=== PATIENT | female | born 2005 | race Caucasian/White ===

== ENCOUNTER 2025-01-29 10:04 | Emergency (ER) | payer OTHER, SELFPAY ==
--- NOTE | ~2025-01-29 | CT_ITS ---
EXAMINATION: CT ABDOMEN AND PELVIS WITH CONTRAST CLINICAL INFORMATION: Lower abdominal pain. Nausea. Vomiting. COMPARISON: None available. TECHNIQUE: Multidetector volumetric images were obtained from the superior aspect of the liver through the pubic symphysis following administration 85 mL of Omnipaque 350 intravenous contrast. Sagittal and coronal reformatted images were obtained on the technologist's workstation. Oral contrast: No This CT examination was performed using dose optimization techniques as appropriate, variously including the following: *Automated exposure control *Adjustment of mA and/or kV according to patient size (this includes techniques or standardized protocols for targeted exams where dose is matched to indication/reason for exam; i.e. extremities or head) *Use of iterative reconstruction technique DLP: 378 mGy centimeter. FINDINGS: LUNG BASES: No acute airspace disease or gross pulmonary nodules. LIVER, GALLBLADDER, AND BILIARY TREE: Liver measures 16 cm. No focal mass. Portal veins, hepatic veins and intrahepatic portion of the IVC are patent. No intrahepatic biliary ductal dilatation. No pericholecystic fluid collection or gallbladder wall thickening. Common bile duct measures 2 mm. PANCREAS: No focal lesion. No peripancreatic fluid collection. No main pancreatic ductal dilatation. SPLEEN: 8 cm. No focal lesion. ADRENAL GLANDS: No nodular lesions. KIDNEYS AND URETERS: No hydronephrosis. No gross nephrolithiasis. No enhancing renal mass. Normal enhancement pattern of the renal parenchyma. BLADDER: Fluid-filled. GASTROINTESTINAL TRACT: Appendix is normal. There is gas and fluid-filled mildly prominent small bowel loops. There is a focal intussusception active the mid small bowel loops segment/digitally ileal junction. There is bowel wall thickening throughout the jejunal loops. No intestinal obstruction pattern. No pneumatosis intestinalis. No pneumoperitoneum. Small amount of free fluid in the cul-de-sac. ABDOMINAL WALL: Small tiny fat-containing umbilical hernia. Metallic piercing in the inferior umbilicus.. LYMPH NODES: No lymphadenopathy, mesenteric or retroperitoneal. VASCULAR: No aneurysm or dissection, thoracic aorta. PELVIC VISCERA: 2 cm peripheral enhancing cyst, right adnexa with a trace of free fluid in the cul-de-sac. OSSEOUS STRUCTURES: No acute fracture or listhesis. No lytic or blastic lesions. CT/CT abdomen pelvis w IV con IMPRESSION: Focal segment of intussusception at the jejunal ileal loops with partial incomplete small bowel obstruction. The possibility of a Meckel's diverticulum should be considered in the correct clinical settings. Probable recently rupture right ovarian cyst. Fleischner guidelines were followed. Electronically signed by: Reji Larkin MD 01/29/2025 12:23 PM EDT RP
--- NOTE | ~2025-01-29 | FL_ITS ---
EXAMINATION: FL SMALL BOWEL SERIES CLINICAL INFORMATION: intussusception seen on CT COMPARISON: None available. TECHNIQUE: Following a shaft repairer image of the abdomen, contrast was administered orally, and interval abdominal radiographs were performed to assess for contrast progression through the small bowel. Following contrast transit through the small bowel and into the colon, the patient was placed on the fluoroscopy table, and multiple spot images were obtained. FINDINGS: Advanced Registered Nurse image of the abdomen demonstrates mildly distended small bowel gas pattern. There is normal transit time of contrast material through the small bowel, with contrast present in the colon by 1 hour 45 minutes. Following contrast administration the small bowel loops are of normal caliber throughout the abdomen and pelvis. The jejunal and ileal fold patterns are normal, without evidence of abnormal thickening. No fixed regions of luminal narrowing are seen to suggest stricturing. The terminal ileum demonstrates a normal appearance. The ascending and transverse colon is opacified and appears normal. No spot images obtained. FL/FL small bowel follow through IMPRESSION: No evidence of small bowel obstruction. There is just normal small bowel transit time of 95 minutes. There is no small bowel wall thickening seen. Electronically signed by: Juan Fontenot MD 01/30/2025 01:34 PM EDT
[2025-01-29 10:07] VITALS: BP 103/59; PULSE 101; RESP 18; TEMP 37.1; O2SAT 100; BMI 25.7
[2025-01-29 10:27] LABS: MANUAL DIFF FLAG NO
--- NOTE | 2025-01-29 10:29 | ED_ITS ---
HPI - Abdominal Pain General Chief Complaint: Abdominal Pain Stated Complaint: Vomiting Time Seen by Provider: 01/29/25 10:29 Source: patient, RN notes reviewed and old records reviewed Mode of arrival: ambulatory History of Present Illness ED Provider: Carmen Rutherford PA-C [facility] narrative: 19-year-old female with no significant past medical history presenting to the ED complaining of diffuse abdominal pain, nausea, vomiting x this morning. States 2 weeks ago had episode of nausea, vomiting, and lightheadedness with syncopal episodes at home, admits she called EMS and they noted her BP was low however she was never evaluated. Denies lightheadedness /dizziness at present or more recent syncopal episodes. Denies fever, chills, cough /recent illness, diarrhea/constipation, dysuria / hematuria, vaginal bleeding or discharge. LMP last month. Related Data Allergies Allergy/AdvReac Type Severity Reaction Status Date / Time No Known Allergies Allergy Verified 01/29/25 10:10 Review of Systems Review of Systems Yes all other systems are reviewed and are negative Constitutional: Reports as per [facility] Past Medical History Attestation statement: The following information was validated with the patient. Source: old records reviewed Social History Social History Advance Directives: No Advance Directives Information Provided: No Do you have a plan to hurt others: No Plan Physical Exam ED Vital Signs: Vital Signs - 24 hr 01/29/25 10:07 Temperature 98.8 F Pulse Rate 101 H Respiratory Rate 18 Blood Pressure 103/59 L Pulse Oximetry 100 Oxygen Delivery Method Room Air BMI result Body Mass Index 25.7 Const General: cooperative, healthy appearing and no acute distress Orientation/consciousness: patient oriented x3 Limitations: no limitations HENMT Head: Yes normal to inspection and Yes atraumatic Ears: hearing grossly normal bilaterally General nose exam: Normal external nose present Face and sinus: Yes normal facial exam Eyes General: appearance normal, both eyes and all related structures EOM: EOMs intact bilaterally Neck Neck: Yes normal visual inspection and Yes no meningeal signs Resp Effort & Inspection: normal respiratory effort and no respiratory distress Auscultation: clear to auscultation bilaterally Cardio Rate: regular rate Heart sounds: S1 normal heart sound present and S2 normal heart sound present GI Inspection: Yes normal to inspection Palpation (GI): Soft to palpation, Tenderness to palpation present (GI) (Lower abdomen) with no rebound tenderness, no guarding and not rigid General: Yes no CVA tenderness Back/Spine/Pelvis Back: no CVA tenderness Skin Rashes: no rashes Wounds: no wounds Neuro General: patient oriented x3, tone normal and no meningeal signs Cranial nerves: Yes CN's II-XII intact bilaterally Gait exam (Neuro): Normal gait present Extrem General: Yes normal to inspection Course Course Course Narrative: -1252- labs reassuring. UA contaminated will wait on initiating antibiotics until culture results - COVID-[address] abdomen pelvis w IV con IMPRESSION: Focal segment of intussusception at the jejunal ileal loops with partial incomplete small bowel obstruction. The possibility of a Meckel's diverticulum should be considered in the correct clinical settings. Probable recently rupture right ovarian cyst. Fleischner guidelines were followed. > will consult General surgery, Dr. Castillo > recommended doing a fast large p.o. bolus of contrast and repeating CT scan as these intussusception meds can improve/ reduce with p.o. contrast > upon re-discussion will do small-bowel follow-through instead of CT -1630-- ED care transferred to [facility] pending small bowel follow-through and surgery recommendations Medical Decision Making Medical Decision Making MDM Narrative: 19-year-old female with no significant past medical history presenting to the ED complaining of diffuse abdominal pain, nausea, vomiting x this morning. On exam mildly tachycardic, NAD, nontoxic appearing, abdomen is soft with lower tenderness to palpation, no rebound or guarding. Concern for gastroenteritis vs appendicitis vs diverticulitis. Rule out /UTI. Lower suspicion for renal stones/pyelo, cholecystitis /lithiasis or pancreatitis. Lower suspicion for ovarian torsion at this time Plan: Labs, UA, CT AP, IVF, antiemetics, re-evaluate Please refer to course for remaining clinical decision making, interpretation of labs/imaging results, and discussions with consultants and/or family members. Differential Diagnosis Differential Diagnoses: The differential diagnosis associated with the presentation includes As above Admission/Observation Consideration of admission/observation: Escalation of care including admission/observation considered Consult Healthcare Provider Management of the patient was discussed with: Nurse Charge Rn ( general surgery) Lab Data MDM Lab Attestation statement: I reviewed the patient's lab results. 01/29/25 10:23 01/29/25 10:23 Labs: Lab Results 01/29/25 01/29/25 01/29/25 Range/Units 10:21 10:23 10:43 WBC 10.7 (4.8-10.8) X10*3/uL RBC 4.59 (4.20-5.50) X10*6/uL Hgb 13.5 (12.0-16.0) g/dl Hct 39.1 (37.0-47.0) % MCV 85.2 (80.0-98.0) fL MCH 29.4 (27.0-33.0) pg MCHC 34.5 (31.0-35.0) g/dl RDW 13.2 (11.0-16.0) % Plt Count 244 (160-400) X10*3/uL MPV 9.4 (9.4-12.3) fL Immature Gran % (Auto) 0.4 (0.0-0.4) % Neut % (Auto) 84.7 H (45-73) % Lymph % (Auto) 7.0 L (20-40) % [place] % (Auto) 7.6 (2-11) % Eos % (Auto) 0.1 (0-4) % Baso % (Auto) 0.2 (0-2) % Lymph # (Auto) 0.8 L (1.2-4.9) X10*3/uL [place] # (Auto) 0.8 (0.1-1.2) X10*3/uL Eos # (Auto) 0.0 (0.0-0.4) X10*3/uL Baso # (Auto) 0.0 (0.0-0.2) X10*3/uL Abs Immat Gran (auto) 0.04 H (0.00-0.03) X10*3/uL Absolute Neuts (auto) 9.1 H (2.0-8.3) x10*3/uL Absolute Nucleated RBC 0.000 (0.0-0.012) X10*3/uL Nucleated RBC % (auto) 0.0 (0.0-0.2) /100WBC Sodium 140 (135-145) mmol/L Potassium 3.6 (3.3-5.1) mmol/L Chloride 108 (96-108) mmol/L Carbon Dioxide 25 (22-29) mmol/L Anion Gap 11 L (12-20) BUN 12 (9-16) mg/dL Creatinine 0.65 (0.5-1.4) mg/dL Estim Creat Clear Calc 112.4 Estimated GFR > 60 Random Glucose 101 (60-115) mg/dL Calcium 9.1 (8.4-10.2) mg/dL Magnesium 1.9 (1.6-2.6) mg/dL Total Bilirubin 0.4 (0.0-1.0) mg/dL Direct Bilirubin 0.2 (0.0-0.5) mg/dL AST 17 (5-31) U/L ALT 6 (0-31) U/L Alkaline Phosphatase 86 (39-117) U/L Total Protein 8.1 H (6.5-8.0) g/dL Albumin 4.4 (3.5-5.0) g/dL Lipase 17 (8-78) U/L Urine Color Dark Yellow Urine Appearance Cloudy Urine pH 6.5 (5.0-9.0) Ur Specific Bearden >= 1.030 H (1.005-1.025) Urine Protein Negative (Neg-Trace) mg/dL Urine Glucose (UA) Negative (Negative) mg/dL Urine Ketones Trace (Negative) mg/dL Urine Blood Negative (Negative) Urine Nitrite Negative (Negative) Ur Leukocyte Esterase Moderate (2+) H (Negative) Urine RBC 0-2 (0-2) /HPF Urine WBC 6-10 H (0-5) /HPF Ur Squamous Epith Cells 11-20 (0-2) /HPF Urine Bacteria 4+ (None Seen) Hyaline Casts 0-2 (0-2) /LPF Urine Test NEGATIVE (NEGATIVE) Influenza Type A (PCR) NEGATIVE (Negative) Influenza Type B (PCR) NEGATIVE (Negative) RSV RNA Qual (PCR) NEGATIVE (Negative) SARS-CoV-2 RNA (RT-PCR) POSITIVE A (Negative) Independent Interpretation I performed an independent interpretation of an: CT Scan Radiology Impression Discussion of test interpretation with radiology: I have reviewed the radiologist's reading. External Record Review External record reviewed: Inpatient record, Office record, Outpatient record, Prior outpatient labs, Prior outpatient radiology, Primary care record and Outside ED record Tests considered The following testing was considered but not selected: As above Prescription Management I considered prescription management with: Pain Medication Social Determinants Patient?s care significantly limited by Social Determinants of Health including: Other Social Determinant of Health Medications Administered Discontinued Medications Generic Name Dose Route Start Last Admin Trade Name Freq PRN Reason Stop Dose Admin Sodium Chloride 1,000 mls @ 999 mls/hr 01/29/25 10:45 01/29/25 12:54 Ns IV 01/29/25 11:45 Infused .Q1H1M NORMAN Infusion Iohexol 100 ml 01/29/25 11:10 01/29/25 11:10 Iohexol 350 Mg/Ml 100 Ml Infus..Btl IV 01/29/25 11:11 85 ml ONCE ONE Administration Ketorolac Tromethamine 15 mg 01/29/25 10:35 01/29/25 11:30 Ketorolac Tromethamine 15 Mg/Ml Vial IVPUSH 01/29/25 10:36 15 mg ONCE ONE Administration Ondansetron HCl 4 mg 01/29/25 11:35 01/29/25 11:52 Ondansetron Hcl 4 Mg/2 Ml Vial IVPUSH 01/29/25 11:36 4 mg ONCE ONE Administration Discharge Plan Discharge Clinical Impression: Intussusception, COVID-19 Patient Disposition: Still a Patient Print Language: Omani
[2025-01-29 10:30] LABS: Appearance Urine Cloudy; Color Urine Dark Yellow; Glucose Urine UA Negative (Negative); Leukocyte Esterase Urine Moderate (2+) (Negative); Nitrite Urine Negative (Negative); PH 6.5 (5.0-9.0); Specific Gravity - Urine >= 1.030 (1.005-1.025); UMIC TRIGGER UACC YES; Urine Blood Negative (Negative); Urine Ketones Trace mg/dL (Negative); Urine Protein Negative (Neg-Trace)
[2025-01-29 10:31] LABS: UPreg QC Valid YES; Urine Pregnancy NEGATIVE (NEGATIVE)
[2025-01-29 10:32] LABS: Basophils Percent Auto 0.2 % (0-2); Eosinophils Percent Auto 0.1 % (0-4); Hematocrit 39.1 % (37.0-47.0); Hemoglobin 13.5 g/dl (12.0-16.0); Imm Gran Abs Auto 0.04 X10*3/uL (0.00-0.03); Imm Gran Pct Auto 0.4 % (0.0-0.4); Lymphocytes Absolute Auto 0.8 X10*3/uL (1.2-4.9); Mean Corpuscular HGB Conc 34.5 g/dl (31.0-35.0); Mean Corpuscular Hemoglobin 29.4 pg (27.0-33.0); Mean Corpuscular Volume 85.2 fL (80.0-98.0); Mean Platelet Volume 9.4 fL (9.4-12.3); Monocytes Absolute Auto 0.8 X10*3/uL (0.1-1.2); Monocytes Percent Auto 7.6 % (2-11); Neutrophils Absolute Auto 9.1 x10*3/uL (2.0-8.3); Neutrophils Percent Auto 84.7 % (45-73); Platelet Count 244 X10*3/uL (160-400); Red Blood Count 4.59 X10*6/uL (4.20-5.50); Red Cell Distribution Width 13.2 % (11.0-16.0); White Blood Count 10.7 X10*3/uL (4.8-10.8)
[2025-01-29 10:37] LABS: Bacteria Urine 4+ (None Seen); Hyaline Casts Urine 0-2 /LPF (0-2); RBC Urine 0-2 /HPF (0-2); UACC Culture Trigger YES
[2025-01-29 10:51] LABS: Alanine Aminotransferase 6 U/L (0-31); Albumin Level 4.4 g/dL (3.5-5.0); Alkaline Phosphatase 86 U/L (39-117); Anion Gap 11 (12-20); Aspartate Amino Transferase 17 U/L (5-31); Bilirubin Direct 0.2 mg/dL (0.0-0.5); Bilirubin Total 0.4 mg/dL (0.0-1.0); Blood Urea Nitrogen 12 mg/dL (9-16); Calcium 9.1 mg/dL (8.4-10.2); Carbon Dioxide 25 mmol/L (22-29); Chloride 108 mmol/L (96-108); Creatinine Clr Calc Pharmacy 112.4; Estimated Glomerular Filt Rate > 60; Glucose Random 101 mg/dL (60-115); Lipase 17 U/L (8-78); Potassium 3.6 mmol/L (3.3-5.1); Sodium 140 mmol/L (135-145); Total Protein 8.1 g/dL (6.5-8.0)
[2025-01-29] MEDS: iohexoL 350 MG/ML 100 ML INFUS..BTL IV (11:10)
[2025-01-29] MEDS: 0.9 % Sodium Chloride 1,000 ML 999 ML IV (11:30)
[2025-01-29] MEDS: Ketorolac Tromethamine 15 MG/ML VIAL IVPUSH (11:30)
[2025-01-29 11:32] LABS: Influenza A PCR NEGATIVE (Negative); Influenza B PCR NEGATIVE (Negative); Resp Syncy Virus RNA Qual PCR NEGATIVE (Negative); SARS COV2 PCR INHOUSE POSITIVE (Negative)
[2025-01-29 11:42] LABS: Magnesium 1.9 mg/dL (1.6-2.6)
[2025-01-29] MEDS: ondansetron HCL 4 MG/2 ML VIAL IVPUSH (11:52)
[2025-01-29 16:54] VITALS: BP 92/62; PULSE 111; RESP 14; TEMP 36.8; O2SAT 99
[2025-01-29 18:41] VITALS: BP 102/67; PULSE 91; RESP 18; TEMP 36.7; O2SAT 99
--- NOTE | 2025-01-29 19:16 | P.CONGS_ITS ---
History of Present Illness Consult details Consult date: 01/29/25 Requesting physician: Jennifer Van Narrative: The patient is a 19-year-old female who comes into the emergency room complaining of abdominal pain headache not feeling well. CT scan of her abdomen and pelvis was carried out which showed small bowel loops which looked a little thickened and showed an area of intussusception which was not completely causing an obstruction. Patient's abdominal pain has been accompanied by nausea and some vomiting as well. she says her 5-year-old daughter has been ill as well. Her abdomen is diffusely tender. She did have a bowel movement yesterday and has been passing gas. Is thirsty. Review of Systems 2 Review of Systems: Yes all other systems are reviewed and are negative Meds Allergies Allergy/AdvReac Type Severity Reaction Status Date / Time No Known Allergies Allergy Verified 01/29/25 10:10 Physical Exam 2 Vital Signs: Vital Signs: Last Vital Signs Temp 98.0 F 01/29/25 18:41 Pulse 91 01/29/25 18:41 Resp 18 01/29/25 18:41 BP 102/67 01/29/25 18:41 Pulse Ox 99 01/29/25 18:41 O2 Del Method Room Air 01/29/25 18:41 BMI result Body Mass Index 25.7 Const: General: cooperative, healthy appearing and in distress mild Resp: Effort & Inspection: normal respiratory effort Auscultation: clear to auscultation bilaterally Cardio: Rate: regular rate Rhythm: regular rhythm GI: Other: Abdomen maybe a little slightly distended active bowel sounds diffusely mildlytender but no guarding rebound or peritoneal signs Psych: Appearance: grossly normal Mental Status: mental status grossly normal Speech and movement: Normal speech and movement present Results Labs 01/29/25 10:23 01/29/25 10:23 Labs: Abnormal lab results 01/29/25 01/29/25 01/29/25 Range/Units 10:21 10:23 10:43 Neut % (Auto) 84.7 H (45-73) % Lymph % (Auto) 7.0 L (20-40) % Lymph # (Auto) 0.8 L (1.2-4.9) X10*3/uL Abs Immat Gran (auto) 0.04 H (0.00-0.03) X10*3/uL Absolute Neuts (auto) 9.1 H (2.0-8.3) x10*3/uL Anion Gap 11 L (12-20) Total Protein 8.1 H (6.5-8.0) g/dL Ur Specific [place] >= 1.030 H (1.005-1.025) Ur Leukocyte Esterase Moderate (2+) H (Negative) Urine WBC 6-10 H (0-5) /HPF SARS-CoV-2 RNA (RT-PCR) POSITIVE A (Negative) Short CBC 01/29/25 Range/Units 10:23 WBC 10.7 (4.8-10.8) X10*3/uL Hgb 13.5 (12.0-16.0) g/dl Hct 39.1 (37.0-47.0) % Plt Count 244 (160-400) X10*3/uL BMP 01/29/25 10:23 Sodium 140 Potassium 3.6 Chloride 108 Carbon Dioxide 25 BUN 12 Creatinine 0.65 Calcium 9.1 Liver Function 01/29/25 Range/Units 10:23 Total Bilirubin 0.4 (0.0-1.0) mg/dL Direct Bilirubin 0.2 (0.0-0.5) mg/dL AST 17 (5-31) U/L ALT 6 (0-31) U/L Alkaline Phosphatase 86 (39-117) U/L Albumin 4.4 (3.5-5.0) g/dL Urine 01/29/25 01/29/25 Range/Units 10:21 10:23 Urine Color Dark Yellow Urine Appearance Cloudy Urine pH 6.5 (5.0-9.0) Ur Specific [place] >= 1.030 H (1.005-1.025) Urine Protein Negative (Neg-Trace) mg/dL Urine Glucose (UA) Negative (Negative) mg/dL Urine Test NEGATIVE (NEGATIVE) All other labs normal. Imaging Abdomen CT scan report/results: report reviewed and image reviewed CT scan - pelvis: report reviewed and image reviewed Additional studies: Patient: Orlando Karimi MR#: [id number] : 2005 Acct:[id number] Age/Sex: 19 / F ADM Date: 01/29/25 Loc: HO.ED Attending Dr: Ordering Physician: Carmen Rutherford Date of Service: 01/29/25 Procedure(s): CT abdomen pelvis w IV con Accession Number(s): [id number] cc: Carmen Rutherford; Flako Soot MD~ Report Number: [id number]: Total DLP = 378.00 mGy-cm EXAMINATION: CT ABDOMEN AND PELVIS WITH CONTRAST CLINICAL INFORMATION: Lower abdominal pain. Nausea. Vomiting. COMPARISON: None available. TECHNIQUE: Multidetector volumetric images were obtained from the superior aspect of the liver through the pubic symphysis following administration 85 mL of Omnipaque 350 intravenous contrast. Sagittal and coronal reformatted images were obtained on the technologist's workstation. Oral contrast: No This CT examination was performed using dose optimization techniques as appropriate, variously including the following: *Automated exposure control *Adjustment of mA and/or kV according to patient size (this includes techniques or standardized protocols for targeted exams where dose is matched to indication/reason for exam; i.e. extremities or head) *Use of iterative reconstruction technique DLP: 378 mGy centimeter. FINDINGS: LUNG BASES: No acute airspace disease or gross pulmonary nodules. LIVER, GALLBLADDER, AND BILIARY TREE: Liver measures 16 cm. No focal mass. Portal veins, hepatic veins and intrahepatic portion of the IVC are patent. No intrahepatic biliary ductal dilatation. No pericholecystic fluid collection or gallbladder wall thickening. Common bile duct measures 2 mm. PANCREAS: No focal lesion. No peripancreatic fluid collection. No main pancreatic ductal dilatation. SPLEEN: 8 cm. No focal lesion. ADRENAL GLANDS: No nodular lesions. KIDNEYS AND URETERS: No hydronephrosis. No gross nephrolithiasis. No enhancing renal mass. Normal enhancement pattern of the renal parenchyma. BLADDER: Fluid-filled. GASTROINTESTINAL TRACT: Appendix is normal. There is gas and fluid-filled mildly prominent small bowel loops. There is a focal intussusception active the mid small bowel loops segment/digitally ileal junction. There is bowel wall thickening throughout the jejunal loops. No intestinal obstruction pattern. No pneumatosis intestinalis. No pneumoperitoneum. Small amount of free fluid in the cul-de-sac. ABDOMINAL WALL: Small tiny fat-containing umbilical hernia. Metallic piercing in the inferior umbilicus.. LYMPH NODES: No lymphadenopathy, mesenteric or retroperitoneal. VASCULAR: No aneurysm or dissection, thoracic aorta. PELVIC VISCERA: 2 cm peripheral enhancing cyst, right adnexa with a trace of free fluid in the cul-de-sac. OSSEOUS STRUCTURES: No acute fracture or listhesis. No lytic or blastic lesions. CT/CT abdomen pelvis w IV con IMPRESSION: Focal segment of intussusception at the jejunal ileal loops with partial incomplete small bowel obstruction. The possibility of a Meckel's diverticulum should be considered in the correct clinical settings. Probable recently rupture right ovarian cyst. Fleischner guidelines were followed. Electronically signed by: Reji Larkin MD 01/29/2025 12:23 PM EDT RP Dictated By: Reji Clemente MD Signed By: <Electronically signed by Reji Cruz MD in OV> 01/29/25 1223 DD/ 1108 TD/TT: 01/29/25 1208 Photo Mask Pattern Generator: Assessment and Plan (1) Abdominal pain: Status: Acute Plan 19-year-old female with abdominal pain now COVID positive. Pain is generalized diffuse not extremely severe. Blood work all within normal limits. Small-bowel follow-through carried out which shows contrast going all the way through the small bowel and no evidence of any obstruction so that if she did have an area of intussusception causing a partial obstruction that is been resolved at this point in time. She does have some free fluid in the pelvis and an ovarian cyst so maybe some of the pain is secondary to this. 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 At this point no need for any surgical intervention or surgical follow up. COVID care as per medical team Procedures Date of Service Date of Service: 01/29/25
[2025-01-29] MEDS: Diatrizoate Meglumine, Sodium 120 ML SOLUTION PO ×2 (19:29→19:31)
== END 2025-01-29 18:46 | disposition home or self-care (01) ==
PROVIDERS: Physician Assistant; Emergency Provider Emergency Medicine Emergency Medical Services; PCP Pediatrics
DX: K56.1 Intussusception (principal); U07.1 COVID-19; R10.9 Unspecified abdominal pain; R11.2 Nausea with vomiting, unspecified; R55 Syncope and collapse
CPT/HCPCS: 0241U; 36415; 74177; 74250; 80048; 80076; 81001; 81025; 83690; 83735; 85025; 87086; 96361; 96374; 96375; 99284; J1885; J2405; Q9967

== ENCOUNTER → 2025-01-29 10:20 | Outpatient (BNV) | payer OTHER, SELFPAY | PROVIDERS: Emergency Provider Emergency Medicine Emergency Medical Services; PCP Pediatrics; Visit Provider Surgery | DX: R10.9 Unspecified abdominal pain (principal) | CPT/HCPCS: 99284 ==

== ENCOUNTER → 2025-01-29 10:34 | Outpatient (BNV) | payer OTHER, SELFPAY | PROVIDERS: Emergency Provider Emergency Medicine Emergency Medical Services; PCP Pediatrics; Visit Provider Radiology Diagnostic Radiology | DX: K56.1 Intussusception (principal); R11.10 Vomiting, unspecified | CPT/HCPCS: 74177; 74250 ==